=== PATIENT | female | born 1975 | race African-American/Black ===

== ENCOUNTER 2018-05-09 19:45 | Emergency (ER) | payer SELFPAY ==
[~2018-05-09] VITALS: Ht 172.7 cm; Wt 70.0 kg
[~2018-05-09 19:45] MED LIST: ALBU8I INH; LISI-360 PO; LORTA5 PO
[2018-05-09 19:49] VITALS: BP 141/72; PULSE 86; RESP 18; TEMP 98.9; O2SAT 100
--- NOTE | 2018-05-09 20:38 | RADRPT ---
EXAM DATE: 05/09/2018 8:23 PM EDT AGE/SEX: 42 years / Female INDICATIONS: Trauma. Fall. CLINICAL DATA: This is the patient's initial encounter. Patient reports that signs and symptoms have been present for 2 days and indicates a pain score of 8/10. MEDICAL/SURGICAL HISTORY: None. None. COMPARISON: [facility] [place], KNEE RIGHT COMPLETE (4VWS), 02/17/2016. . FINDINGS: Bony structures are intact and in normal alignment. Joints are intact without dislocation or signifi cant arthropathy. Osseous density is normal. Soft tissues are unremarkable. No radiopaque foreign bodies seen. CONCLUSION: No acute findings. Early changes of osteoarthritis. Electronically signed by: Salazar Arboleda MD 05/09/2018 8:37 PM EDT
[2018-05-09] MEDS ORDERED: IBUP1TAB7 PO (20:39)
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
== END 2018-05-09 20:52 | disposition home or self-care (01) ==
LOC: NEPD 19:45
DX: S80.01XA Contusion of right knee, initial encounter (principal); S00.83XA Contusion of other part of head, initial encounter; V78.6XXA Passenger on bus injured in noncollision transport accident in traffic accident, initial encounter; E78.00 Pure hypercholesterolemia, unspecified; I10 Essential (primary) hypertension; J45.909 Unspecified asthma, uncomplicated; F32.9 Major depressive disorder, single episode, unspecified; Z88.8 Allergy status to other drugs, medicaments and biological substances; Z79.899 Other long term (current) drug therapy
CPT/HCPCS: 73564; 99283